=== PATIENT | female | born 1975 | race Two or more races ===

== ENCOUNTER → 2025-02-17 | Outpatient (CLI) | payer BC, SELFPAY ==
[2025-02-17 08:13] LABS: Misc Send Out* See Sep Rpt
[2025-02-17 08:50] LABS: Basophils # (Auto) 0.0 Thou/mm3 (0.0-0.2); Basophils % (Auto) 1 % (0-2.5); Eosinophils # (Auto) 0.1 Thou/mm3 (0.0-0.5); Eosinophils % (Auto) 2 % (0-10); Hematocrit 33.2 % (36.0-46.0); Hemoglobin 9.9 g/dL (12.0-16.0); Immature Granulocytes Auto 0.01 Thou/mm3 (0.00-0.00); Lymphocytes # (Auto) 1.6 Thou/mm3 (1.0-4.8); Lymphocytes % (Auto) 46 % (10-50); Mean Corpuscular HGB Conc 29.8 g/dl (31.0-37.0); Mean Corpuscular Hemoglobin 20.9 pg (25.0-35.0); Mean Corpuscular Volume 70 fL (80-100); Monocytes # (Auto) 0.3 Thou/mm3 (0.0-0.8); Monocytes % (Auto) 7 % (0-12); Neutrophils # (Auto) 1.6 Thou/mm3 (1.8-7.7); Neutrophils % (Auto) 44 % (37-80); Nucleated Red Blood Cell # 0.00 Thou/mm3 (0.00-0.00); Nucleated Red Blood Cell % 0 /100 WBC (0); Platelet Count 444 Thou/mm3 (140-440); RDW Standard Deviation 43.4 fL (36.4-46.3); Red Blood Count 4.73 Miln/mm3 (4.00-5.20); White Blood Count 3.6 Thou/mm3 (3.6-11.0)
[2025-02-17 09:00] LABS: Alanine Aminotransferase 12 U/L (10-49); Albumin, Serum 4.6 gm/dL (3.5-5.0); Albumin/Globulin Ratio 1.8 (1.2-2.2); Alkaline Phosphatase 102 U/L (46-116); Anion Gap 10 (7-16); Aspartate Amino Transferase 19 U/L (0-34); BUN/Creatinine Ratio 14 Ratio (12-20); Bilirubin,Total 0.4 mg/dL (0.3-1.2); Blood Urea Nitrogen 10 mg/dL (9-23); Calcium 9.8 mg/dL (8.3-10.6); Calcium (Corrected) 9.8 mg/dL (8.5-10.1); Carbon Dioxide 24.3 mMol/L (20.0-31.0); Cardiac Risk Estimate 4.1 RATIO (3.7-5.6); Chloride 107 mMol/L (98-107); Cholesterol 181 mg/dL (132-200); Creatinine (Component) 0.7 mg/dL (0.6-1.3); Globulin 2.5 gm/dL (2.3-3.5); Glucose 95 mg/dL (74-106); HDL Cholesterol 44 mg/dL (40-60); LDL Cholesterol,Calculated 97 mg/dL (0-130); Osmolality,Calculated 280 (275-295); Potassium 4.1 mMol/L (3.4-5.1); Sodium 141 mMol/L (136-145); Thyroid Stimulating Hormone 1.58 uIU/mL (0.55-4.78); Total Protein 7.1 gm/dL (5.7-8.2); Triglycerides 199 mg/dL (30-150); eGFR > 60 See Note
[2025-02-17 09:02] LABS: Glucose Estimated Average 120 mg/dL (80-131); Hemoglobin A1C 5.8 % Hgb (4.8-6.0)
[2025-02-17 09:10] LABS: T4 (Thyroxine) 7.0 mcg/dL (4.5-10.9)
[2025-03-03 06:57] LABS: DHEA Sulfate* 104 mcg/dL (19-231); Estradiol, Ultrasensitive* 37 pg/mL; Progesterone,LC/MS* <0.1 ng/mL; Sex Hormone Binding Globulin* 41 nmol/L (17-124); Testosterone, Free,Dialysis 1.9 pg/mL (0.1-6.4); Testosterone, Total, Dialysis 16 ng/dL (2-45)
== END | disposition home or self-care (01) ==
LOC: COPL 07:56
PROVIDERS: PCP Family Medicine; Referring Provider Nurse Practitioner Family; Visit Provider Nurse Practitioner Family
DX: R87.1 Abnormal level of hormones in specimens from female genital organs (principal); R53.83 Other fatigue; Z86.39 Personal history of other endocrine, nutritional and metabolic disease; Z82.49 Family history of ischemic heart disease and other diseases of the circulatory system
CPT/HCPCS: 36415; 80053; 80061; 82157; 82397; 82627; 82670; 83036; 84144; 84270; 84402; 84403; 84436; 84443; 84466; 85025

== ENCOUNTER → 2025-02-17 | Outpatient (CLI) | payer BC, SELFPAY ==
[2025-02-17 17:15] LABS: Misc Send Out* See Sep Rpt
[2025-02-17 17:57] LABS: Immature Reticulocyte Fraction 14.7 % (3.0-15.9); Reticulocyte % (Auto) 0.8 % (0.5-1.5); Reticulocyte Absolute Auto 37.7 Biln/L (25.0-75.0); Reticulocyte Hgb Content 20.2 pg (28.0-35.0)
[2025-02-17 18:05] LABS: Ferritin 4 ng/mL (7.3-270.7); Folate 14.08 ng/mL (>5.38); Iron 18 mcg/dL (50-170); Percent Iron Saturation 4 % (20-55); Total Iron Binding Capacity 440 mcg/dL (250-425); Unsaturated Iron Binding 422 (225-295); Vitamin B12 412 pg/mL (211-911)
[2025-02-28 08:47] LABS: Vitamin B1 (Thiamine)* 14 nmol/L (8-30)
[2025-02-28 09:01] LABS: Homocysteine* 11.5 umol/L (< OR = 11.0); Methylmalonic Acid, GC/MS/MS* 153 nmol/L (55-335)
== END | disposition home or self-care (01) ==
LOC: COPL 16:27
PROVIDERS: PCP Nurse Practitioner Family; Referring Provider Nurse Practitioner Family; Visit Provider Nurse Practitioner Family
DX: D64.9 Anemia, unspecified (principal)
CPT/HCPCS: 36415; 82607; 82728; 82746; 83090; 83540; 83550; 83921; 84425; 85046

== ENCOUNTER → 2025-03-29 | Outpatient (CLI) | payer BC, SELFPAY ==
[2025-03-29 13:11] LABS: Misc Send Out* See Sep Rpt
[2025-03-29 14:44] LABS: Basophils # (Auto) 0.0 Thou/mm3 (0.0-0.2); Basophils % (Auto) 1 % (0-2.5); Eosinophils # (Auto) 0.0 Thou/mm3 (0.0-0.5); Eosinophils % (Auto) 1 % (0-10); Hematocrit 38.6 % (36.0-46.0); Hemoglobin 12.0 g/dL (12.0-16.0); Immature Granulocytes Auto 0.00 Thou/mm3 (0.00-0.00); Immature Reticulocyte Fraction 21.6 % (3.0-15.9); Lymphocytes # (Auto) 2.0 Thou/mm3 (1.0-4.8); Lymphocytes % (Auto) 36 % (10-50); Mean Corpuscular HGB Conc 31.1 g/dl (31.0-37.0); Mean Corpuscular Hemoglobin 23.9 pg (25.0-35.0); Mean Corpuscular Volume 77 fL (80-100); Monocytes # (Auto) 0.5 Thou/mm3 (0.0-0.8); Monocytes % (Auto) 8 % (0-12); Neutrophils # (Auto) 3.0 Thou/mm3 (1.8-7.7); Neutrophils % (Auto) 55 % (37-80); Nucleated Red Blood Cell # 0.00 Thou/mm3 (0.00-0.00); Nucleated Red Blood Cell % 0 /100 WBC (0); Platelet Count 378 Thou/mm3 (140-440); RDW Standard Deviation 63.8 fL (36.4-46.3); Red Blood Count 5.03 Miln/mm3 (4.00-5.20); Reticulocyte % (Auto) 1.2 % (0.5-1.5); Reticulocyte Absolute Auto 62.4 Biln/L (25.0-75.0); Reticulocyte Hgb Content 28.1 pg (28.0-35.0); White Blood Count 5.6 Thou/mm3 (3.6-11.0)
[2025-03-29 14:58] LABS: Ferritin 16 ng/mL (7.3-270.7); Iron 33 mcg/dL (50-170); Percent Iron Saturation 8 % (20-55); Total Iron Binding Capacity 386 mcg/dL (250-425); Unsaturated Iron Binding 353 (225-295)
== END | disposition home or self-care (01) ==
LOC: COPL 12:51
PROVIDERS: PCP Nurse Practitioner Family; Referring Provider Nurse Practitioner Family; Visit Provider Nurse Practitioner Family
DX: D50.9 Iron deficiency anemia, unspecified (principal)
CPT/HCPCS: 36415; 82728; 83540; 83550; 85025; 85046